=== PATIENT | male | born 1980 | race Caucasian/White ===

== ENCOUNTER 2019-01-16 18:35 | Inpatient (IN) | payer SELFPAY ==
[2019-01-16] MEDS ORDERED: Ketamine 50 MG/ML (10ML VIAL) ONE (18:54)
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
[2019-01-16] MEDS ORDERED: Ondansetron PF 4 MG/2 ML Vial ONE (19:22)
[2019-01-16] MEDS ORDERED: Rocuronium Bromide 10 MG/ML (10ML VIAL) ONE (19:24)
[2019-01-16 19:25] LABS: Hemoglobin 17.4 g/dL (14.0-18.0); Mean Corpuscular HGB CONC 33.6 g/dL (32.0-36.0); Mean Corpuscular Hemoglobin 30.1 pg (27.0-31.0); Mean Corpuscular Volume 89.7 fL (78.0-98.0); Mean Platelet Volume 8.8 fL (7.4-10.4); Platelet Count 331 thou/uL (130-400); RBC Distribution Width 11.7 % (11.5-14.5); Red Blood Cell (RBC) Count 5.78 mill/uL (4.70-6.10); White Blood Cell (WBC) Count 14.9 thou/uL (4.8-10.8)
[2019-01-16 19:31] LABS: PTT 27.3 SEC (22.9-36.1); Prothrombin Time 12.9 SEC (12.0-14.7)
[2019-01-16 19:38] LABS: Eosinophils 2 % (0-10); Lymphocytes 44 % (21-51); MDiff Complete? YES; Monocytes 5 % (0-10); Neutrophil 44 % (42-75); Platelet Morphology Comment Appears Adequate; RBC Morphology Normal; Reactive Lymphocytes 4 % (0-10)
[2019-01-16 19:41] LABS: Amphetamine Not Detected (NotDetected); Barbiturates Screen Not Detected (NotDetected); Benzodiazepine Screen Not Detected (NotDetected); Cocaine Metabolite Screen Not Detected (NotDetected); Medtox Control Line Valid? VALID (VALID); Medtox Reader # READER 4; Methadone Not Detected (NotDetected); Methamphetamine Not Detected (NotDetected); Opiate Screen Not Detected (NotDetected); Oxycodone Screen Not Detected (NotDetected); Phencyclidine (PCP) Not Detected (NotDetected); THC/Cannabinoid Screen Not Detected (NotDetected); Tricyclic Screen Not Detected (NotDetected)
[2019-01-16 19:41] LABS: Actual Bicarbonate (HCO3a) 16.4 mEq/L (22-28); Analyzer IN Cardio ER; Base Excess (BEa) -12.6 mEq/L (-2.0 to +3.0); CO2 Tension 48.3 mmHg (35.0-45.0); Calcium, Ionized 1.15 mmol/L (1.12-1.30); Carboxyhemoglobin (COHb) 2.5 gm% (0.0-3.0); Hemoglobin (Hb) 17.4 g/dL (14.0-18.0); O2 Tension (PaO2) 79.2 mmHg (80.0-100.0); Potassium - ABG Lab 3.71 mmol/L (3.70-5.30)
[2019-01-16 19:42] LABS: Acetaminophen Less than 6.0 mcg/mL (10.0-30.0); Alcohol 316 mg/dL (Less than 10); Salicylate Less than 8.0 mg/dL (15.0-30.0)
[2019-01-16 19:44] LABS: ALT (SGPT) 35 U/L (8-55); AST (SGOT) 15 U/L (5-34); Albumin 4.9 g/dL (3.5-5.0); Alcohol 324 mg/dL (Less than 10); Alkaline Phosphatase 78 U/L (40-150); Anion Gap 24 mmol/L (10-20); BUN (Urea Nitrogen) 8 mg/dL (8.9-20.6); Bilirubin, Total 0.3 mg/dL (0.2-1.2); Calc. Creatinine Clearance 0 mL/min (70-130); Calcium 9.9 mg/dL (7.8-10.44); Carbon Dioxide 19 mmol/L (22-29); Chloride 101 mmol/L (98-107); Estimated GFR-MDRD 78; Globulin 3.1 g/dL (2.4-3.5); Glucose 317 mg/dL (70-105); Potassium 3.8 mmol/L (3.5-5.1); Sodium 140 mmol/L (136-145)
[2019-01-16] MEDS ORDERED: Adacel (T-DAP) 0.5 ML SYRINGE ONE (19:44)
[2019-01-16] MEDS ORDERED: fentaNYL Citrate/PF 2,000 MCG in Sodium Chloride 0.9% 60 ML IV SCH (19:44)
[2019-01-16] MEDS ORDERED: Lorazepam 2 MG/ML VIAL ONE (19:48)
[2019-01-16] MEDS ORDERED: Fentanyl 100 MCG/2 ML VIAL ONE (19:48)
[2019-01-16 19:53] LABS: pH, Arterial 7.15 (7.35-7.45)
[2019-01-16 19:54] LABS: ALV-art Gradient 573.425 (0-20); Puncture Site RRA
[2019-01-16 19:54] LABS: Bilirubin Negative (Negative); Blood, Urine Negative (Negative); Clarity CLEAR (Clear); Glucose, Urine (Dipstick) >=1000 mg/dL (Negative); Leukocyte Negative (Negative); Nitrite Negative (Negative); Protein, Urine (Dipstick) Negative (Neg-Trace); Specific Gravity, Urine 1.011 (1.002-1.036); Urobilinogen 0.2 mg/dL (0.2-1.0)
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
[2019-01-16] MEDS ORDERED: Piperacillin/Tazobactam 4.5 GM VIAL ONE (20:57)
[2019-01-16 21:06] LABS: Actual Bicarbonate (HCO3a) 18.7 mEq/L (22-28); Analyzer IN Cardio ER; Base Excess (BEa) -7.5 mEq/L (-2.0 to +3.0); CO2 Tension 40.7 mmHg (35.0-45.0); Calcium, Ionized 1.17 mmol/L (1.12-1.30); Carboxyhemoglobin (COHb) 1.5 gm% (0.0-3.0); Hemoglobin (Hb) 17.1 g/dL (14.0-18.0); Potassium - ABG Lab 3.91 mmol/L (3.70-5.30); pH, Arterial 7.28 (7.35-7.45)
[2019-01-16] MEDS ORDERED: Propofol 1,000 MG/100 ML VIAL IV ONE (21:11)
[2019-01-16 21:14] LABS: O2 Tension (PaO2) 56.2 mmHg (80.0-100.0); Puncture Site RRA
[2019-01-16 21:15] LABS: ALV-art Gradient 605.925 (0-20)
[2019-01-16] MEDS ORDERED: Ventilator Sedation Protocol 1 EACH FS SCH (21:30)
[2019-01-16] MEDS ORDERED: Lorazepam 2 MG/ML VIAL SLOW IVP PRN (21:32)
[2019-01-16] MEDS ORDERED: DISCONTINUE PREVIOUS NARCOTIC PAIN MEDICATIONS AND BENZODIAZEPINES FS SCH (21:32)
[2019-01-16] MEDS ORDERED: Fentanyl BOLUS 250 ML IVPB PRN (21:32)
[2019-01-16] MEDS ORDERED: Morphine 2 MG/ML SYRINGE SLOW IVP PRN (21:32)
[2019-01-16] MEDS ORDERED: Propofol BOLUS 1,000 MG/100 ML VIAL IV PRN (21:32)
[2019-01-16] MEDS ORDERED: Midazolam HCl 2 mg/2 ml Vial ONE (21:46)
[2019-01-16] MEDS ORDERED: Vecuronium 10 MG VIAL ONE (21:58)
[2019-01-16] MEDS ORDERED: Midazolam HCl 2 mg/2 ml Vial SLOW IVP SCH (22:00)
[2019-01-16 22:12] VITALS: BMI 35.2
[2019-01-16] MEDS ORDERED: Dextrose 50% Abboject 50 ML SYRINGE SLOW IVP PRN (22:27)
[2019-01-16] MEDS ORDERED: Dextrose 5% in Water 1,000 ML IV PRN (22:27)
[2019-01-16] MEDS ORDERED: Promethazine HCl 25 MG/ML VIAL IM PRN (22:27)
[2019-01-16] MEDS ORDERED: Ondansetron PF 4 MG/2 ML Vial IVP PRN (22:27)
[2019-01-16 23:01] LABS: Lactic Acid 4.4 mmol/L (0.5-2.2)
[2019-01-16] MEDS ORDERED: Lactated Ringer's 1,000 ML IV SCH (23:15)
[2019-01-16] MEDS ORDERED: Vecuronium 10 MG VIAL IV SCH (23:15)
[2019-01-16] MEDS ORDERED: Sterile Water 10 ML VIAL IVP SCH (23:15)
[2019-01-16] MEDS: Sodium Chloride 0.9% 1,000 ML IV SCH (23:23)
[2019-01-16 23:33] LABS: Actual Bicarbonate (HCO3a) 19.2 mEq/L (22-28); Base Excess (BEa) -8.2 mEq/L (-2.0 to +3.0); CO2 Tension 46.3 mmHg (35.0-45.0); Calcium, Ionized 1.09 mmol/L (1.12-1.30); Carboxyhemoglobin (COHb) 1.3 gm% (0.0-3.0); Hemoglobin (Hb) 15.7 g/dL (14.0-18.0); O2 Tension (PaO2) 125.8 mmHg (80.0-100.0); Potassium - ABG Lab 3.81 mmol/L (3.70-5.30)
[2019-01-16] MEDS ORDERED: Vecuronium Bromide 50 MG in Sodium Chloride 0.9% 250 ML 250 ML IV SCH (23:45)
[2019-01-16 23:50] LABS: Puncture Site LRA; pH, Arterial 7.24 (7.35-7.45)
[2019-01-16 23:51] LABS: ALV-art Gradient 529.325 (0-20)
[2019-01-17] MEDS ORDERED: Calcium Chloride 1 GM/10 ML Abboject SYRINGE IVP SCH (00:15)
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
[2019-01-17] MEDS: Sodium Chloride 0.9% 1,000 ML IV SCH ×3 (02:15→19:30)
[2019-01-17] MEDS: Propofol 1,000 MG/100 ML VIAL IV PRN ×2 (05:24→10:46)
[2019-01-17 06:51] LABS: Actual Bicarbonate (HCO3a) 19.4 mEq/L (22-28); Base Excess (BEa) -4.7 mEq/L (-2.0 to +3.0); CO2 Tension 33.5 mmHg (35.0-45.0); Calcium, Ionized 1.13 mmol/L (1.12-1.30); Carboxyhemoglobin (COHb) 0.9 gm% (0.0-3.0); Hemoglobin (Hb) 15.3 g/dL (14.0-18.0); O2 Tension (PaO2) 99.3 mmHg (80.0-100.0); Potassium - ABG Lab 3.74 mmol/L (3.70-5.30); pH, Arterial 7.38 (7.35-7.45)
[2019-01-17 06:52] LABS: ALV-art Gradient 286.625 (0-20); Puncture Site RRA
[2019-01-17 08:01] LABS: #Basophils 0.1 thou/uL (0.0-0.2); #Eosinphils 0.1 thou/uL (0.0-0.7); #Lymphocytes 4.4 thou/uL (1.20-3.40); #Monocytes 1.2 thou/uL (0.11-0.59); #Neutrophils 9.1 thou/uL (1.40-6.50); %Basophils 0.6 % (0.0-1.0); %Eosinophils 0.4 % (0.0-10.0); %Lymphocytes 29.9 % (21.0-51.0); %Monocytes 7.8 % (0.0-10.0); %Neutrophils 61.2 % (42.0-75.0); Hemoglobin 15.5 g/dL (14.0-18.0); Mean Corpuscular HGB CONC 33.6 g/dL (32.0-36.0); Mean Corpuscular Volume 89.4 fL (78.0-98.0); Mean Platelet Volume 8.5 fL (7.4-10.4); Platelet Count 288 thou/uL (130-400); RBC Distribution Width 11.7 % (11.5-14.5); Red Blood Cell (RBC) Count 5.17 mill/uL (4.70-6.10); White Blood Cell (WBC) Count 14.8 thou/uL (4.8-10.8)
[2019-01-17 08:30] LABS: Lactic Acid 2.2 mmol/L (0.5-2.2)
[2019-01-17 08:33] LABS: Anion Gap 13 mmol/L (10-20); BUN (Urea Nitrogen) 7 mg/dL (8.9-20.6); Calc. Creatinine Clearance 210 mL/min (70-130); Calcium 8.7 mg/dL (7.8-10.44); Carbon Dioxide 21 mmol/L (22-29); Chloride 108 mmol/L (98-107); Estimated GFR-MDRD Greater than 90; Glucose 150 mg/dL (70-105); Magnesium 1.6 mg/dL (1.6-2.6); Phosphorus 2.2 mg/dL (2.3-4.7); Potassium 3.7 mmol/L (3.5-5.1); Sodium 138 mmol/L (136-145)
[2019-01-17] MEDS ORDERED: Magnesium 2 GM/50 ML 2 GM in Premix Bag 1 BAG IVPB SCH (08:45)
--- NOTE | 2019-01-17 09:13 | RAD ---
SINGLE VIEW CHEST: Date: 01/17/19 COMPARISON: 01/16/19. HISTORY: Intubation with respiratory failure. FINDINGS: Single view of the chest shows a normal sized cardiomediastinal silhouette. The endotracheal tube and NG tube are unchanged in position. There is improvement in aeration of the right upper lobe. IMPRESSION: Improvement in right upper lobe aeration. POS: [facility]
[2019-01-17] MEDS: Famotidine/PF 20 mg/2ml Vial SLOW IVP SCH ×2 (10:24→21:32)
[2019-01-17] MEDS: cloNIDine 0.1 MG TAB PO SCH ×3 (10:28→21:33)
[2019-01-17] MEDS: Folic Acid 1 MG TAB PER TUBE SCH (10:28)
[2019-01-17] MEDS: Thiamine HCl 200 MG/2 ML VIAL SLOW IVP SCH (10:58)
[2019-01-17] MEDS: Oxazepam 10 MG CAP PO SCH ×2 (11:09→17:30)
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
[2019-01-17] MEDS: Enoxaparin Sodium 30 MG/0.3 ML SYRINGE SC SCH (21:31)
[2019-01-18] MEDS: Oxazepam 10 MG CAP PO SCH ×2 (02:24→09:47)
[2019-01-18] MEDS ORDERED: traMADol HCl 50 MG TAB PO PRN (04:03)
[2019-01-18] MEDS: cloNIDine 0.1 MG TAB PO SCH ×2 (04:20→09:47)
[2019-01-18] MEDS: Sodium Chloride 0.9% 1,000 ML IV SCH (04:20)
[2019-01-18] MEDS: traMADol HCl 50 MG TAB PO PRN ×2 (04:20→09:48)
[2019-01-18] MEDS ORDERED: Ibuprofen 800 MG TAB PO SCH (06:00)
[2019-01-18] MEDS: Acetaminophen 500 MG TAB PO SCH ×2 (06:16→11:57)
[2019-01-18 06:44] LABS: #Basophils 0.1 thou/uL (0.0-0.2); #Eosinphils 0.1 thou/uL (0.0-0.7); #Monocytes 1.5 thou/uL (0.11-0.59); #Neutrophils 10.8 thou/uL (1.40-6.50); %Basophils 0.5 % (0.0-1.0); %Eosinophils 0.4 % (0.0-10.0); %Lymphocytes 19.6 % (21.0-51.0); %Monocytes 9.7 % (0.0-10.0); %Neutrophils 69.8 % (42.0-75.0); Hemoglobin 15.1 g/dL (14.0-18.0); Mean Corpuscular HGB CONC 33.7 g/dL (32.0-36.0); Mean Corpuscular Volume 89.1 fL (78.0-98.0); Mean Platelet Volume 8.1 fL (7.4-10.4); Platelet Count 268 thou/uL (130-400); RBC Distribution Width 11.4 % (11.5-14.5); Red Blood Cell (RBC) Count 5.02 mill/uL (4.70-6.10); White Blood Cell (WBC) Count 15.5 thou/uL (4.8-10.8)
[2019-01-18 07:17] LABS: Anion Gap 14 mmol/L (10-20); BUN (Urea Nitrogen) 7 mg/dL (8.9-20.6); Calc. Creatinine Clearance 202 mL/min (70-130); Calcium 8.7 mg/dL (7.8-10.44); Carbon Dioxide 23 mmol/L (22-29); Chloride 100 mmol/L (98-107); Estimated GFR-MDRD Greater than 90; Glucose 185 mg/dL (70-105); Magnesium 1.9 mg/dL (1.6-2.6); Phosphorus 2.7 mg/dL (2.3-4.7); Potassium 3.8 mmol/L (3.5-5.1); Sodium 133 mmol/L (136-145)
--- NOTE | 2019-01-18 07:47 | RAD ---
EXAM: CHEST ONE VIEW HISTORY: Aspiration COMPARISON: 01/17/2019 FINDINGS: The endotracheal tube and nasogastric tubes have been removed. The cardiac silhouette is magnified by projection. Pulmonary vasculature is within normal limits. There is an increased density in the right hilar region and right infrahilar region. Left lung appears clear. There is no pneumothorax or pleural effusion identified. No other interval change from prior study. IMPRESSION: 1. Mild increased density in the right hilar/infrahilar location. This may be related to atelectasis, developing pneumonia versus aspiration. Follow-up PA and lateral chest x-ray is recommended.
[2019-01-18] MEDS: Famotidine/PF 20 mg/2ml Vial SLOW IVP SCH (08:18)
[2019-01-18] MEDS: Folic Acid 1 MG TAB PER TUBE SCH (08:18)
[2019-01-18] MEDS: Enoxaparin Sodium 30 MG/0.3 ML SYRINGE SC SCH (08:18)
[2019-01-18] MEDS: Thiamine HCl 200 MG/2 ML VIAL SLOW IVP SCH (08:19)
[2019-01-18 11:37] VITALS: BP 110/81
[2019-01-18 12:39] VITALS: TEMP 98.1
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
== END 2019-01-18 14:00 | disposition home or self-care (01) | DRG 208 ==
LOC: ERS 18:35 → CCU 21:23
PROVIDERS: ADMIT Surgery; ATTEND Surgery
PROC: 5A1935Z Respiratory Ventilation, Less than 24 Consecutive Hours (ICD-10-PCS; principal; 2019-01-16)
PROC: 0BH17EZ Insertion of Endotracheal Airway into Trachea, Via Natural or Artificial Opening (ICD-10-PCS; 2019-01-16)
PROC: 0BJ08ZZ Inspection of Tracheobronchial Tree, Via Natural or Artificial Opening Endoscopic (ICD-10-PCS; 2019-01-16)
DX: J96.01 Acute respiratory failure with hypoxia (principal); S91.302A Unspecified open wound, left foot, initial encounter; F10.129 Alcohol abuse with intoxication, unspecified; R74.0 Nonspecific elevation of levels of transaminase and lactic acid dehydrogenase [LDH]; W34.00XA Accidental discharge from unspecified firearms or gun, initial encounter
CPT/HCPCS: 31500; 36415; 36416; 70450; 71045; 80048; 80053; 80306; 80307; 81003; 82805; 83605; 83735; 84100; 84443; 85025; 85610; 85730; 90715; 93005; 94002; 94003; 94760; J0690; J1650; J2060; J2250; J2405; J2543; J2704; J3010; J3411; J3490; J7050; S0028